=== PATIENT | female | born 2000 | race Two or more races ===

== ENCOUNTER 2018-10-28 16:30 | Emergency (ER) | payer OTHER ==
--- NOTE | 2018-10-28 17:25 | EDPHY ---
H & P Stated Complaint: positive d dimer at [facility], sent by them Time Seen by Provider: 10/28/18 16:38 HPI/ROS: CHIEF COMPLAINT: Right sided chest pain, positive D-dimer HISTORY OF PRESENT ILLNESS: 18-year-old female presents with right-sided chest pain. Onset of right-sided lower chest pain 4 days ago. The pain is intermittent and increases with deep inspiration. No shortness of breath and no recent URI symptoms or fever. On control pills, nonsmoker. No prior history of VTE. Was seen at the [facility] today and D-dimer was reportedly elevated. The remainder of the tests including LFTs were unremarkable. Sent here for further evaluation. REVIEW OF SYSTEMS: complete 10 point ROS reviewed and is negative except for the noted elements in the HPI - Personal History LMP (Females 10-55): Now Current Tetanus Diphtheria and Acellular Pertussis (TDAP): Yes - Medical/Surgical History Hx Asthma: No Hx Chronic Respiratory Disease: No Hx Diabetes: No Hx Cardiac Disease: No Hx Renal Disease: No Hx Cirrhosis: No Hx Alcoholism: No Hx HIV/AIDS: No Hx Splenectomy or Spleen Trauma: No - Social History Smoking Status: Never smoked Alcohol Use: Sober Drug Use: None - Physical Exam Exam: General Appearance: Alert, pleasant Eyes: Pupils equal and round, no conjunctival pallor or injection ENT, Mouth: Mucous membranes moist Neck: Normal inspection Respiratory: No chest wall tenderness, normal respiratory rate, Lungs are clear to auscultation Cardiovascular: Regular rate and rhythm Gastrointestinal: Abdomen is soft and nontender Neurological: A&O, nonfocal, normal gait Skin: Warm and dry, no rash on exposed skin Extremities: Nontender, no pedal edema Psychiatric: Mood and affect normal Constitutional: Initial Vital Signs Temperature (C) 37.1 C 10/28/18 16:32 Heart Rate 86 10/28/18 16:32 Respiratory Rate 16 10/28/18 16:32 Blood Pressure 109/69 10/28/18 16:32 O2 Sat (%) 96 10/28/18 16:32 O2 Delivery Mode Room Air Allergies/Adverse Reactions: No Known Allergies Allergy (Unverified 10/28/18 16:32) Home Medications: Medication Instructions Recorded Lamictal 10/28/18 Johnny 1.5 mg-30 Mcg Tablet 10/28/18 Medical Decision Making - Diagnostics EKG Interpretation: EKG interpreted by me reveals normal sinus rhythm, rate 85, early repolarization. Interpretation: Normal EKG Imaging Results: Chest/Thorax CTA 10/28/18 18:14 Impression: No acute pulmonary embolus. Findings and recommendations discussed with CHELE BROWNE at 1850 hour, 2018. Imaging: Discussed imaging studies w/ bingo caller Radiologist ED Course/Re-evaluation: This patient presents with intermittent pleuritic right-sided chest pain. On OCP's, PERC score positive (1), repeat D-dimer is 3.7. CT pulmonary angiogram ordered and reveals no evidence of pulmonary embolism. Results discussed with the patient. Repeat abd exam soft, NT; no evidence for intraabd etiology. c/w musculoskeletal etiology of pain. Toradol 30 mg IV given. Will follow up at [facility]. Warning signs discussed. Differential Diagnosis: Differential diagnosis includes though it is not limited to pneumonia, pneumothorax, pulmonary embolism, aortic dissection, pericarditis, acute coronary syndrome. - Data Points Laboratory Results: Laboratory Results 10/28/18 17:03 10/28/18 17:03 Medications Given: Discontinued Medications Diphenhydramine HCl (Benadryl Injection) 25 mg IVP EDNOW ONE Stop: 10/28/18 18:46 Last Admin: 10/28/18 18:47 Dose: 25 mg Sodium Chloride (Ns) 1,000 mls @ 0 mls/hr IV EDNOW ONE; Wide Open PRN Reason: Protocol Stop: 10/28/18 19:00 Last Admin: 10/28/18 19:02 Dose: 1,000 mls Departure - Departure Disposition: Home, Routine, Self-Care Clinical Impression: Chest pain Qualifiers: Chest pain type: other chest pain Qualified Code(s): R07.89 - Other chest pain Condition: Good Instructions: Chest Pain (ED) Additional Instructions: You do not have a blood clot in your lungs. Ibuprofen 600 mg 3 times daily while the pain persists. Return for worsening symptoms or any concerns. [facility] [Other] - As per Instructions
[2018-10-28 17:53] LABS: PLATELET COUNT 436 10^3/uL (150-400)
[2018-10-28] MEDS ORDERED: IOPAMIDOL (ISOVUE-370) 150 ML BTL IV ONE (18:22)
[2018-10-28 18:43] VITALS: BP 121/70
[2018-10-28] MEDS ORDERED: NS 1,000 ML IV ONE (18:59)
--- NOTE | 2018-10-28 23:04 | CPEKG ---
Test Reason : OPEN Blood Pressure : / mmHG Vent. Rate : 085 BPM Atrial Rate : 084 BPM P-R Int : 141 ms QRS Dur : 083 ms QT Int : 350 ms P-R-T Axes : 068 063 045 degrees QTc Int : [address] elev, probable normal early repol pattern Confirmed by Mariel Browne ([id number]) on 10/28/2018 11:04:20 PM Referred By: MARIEL BROWNE Confirmed By:Mariel Browne
== END 2018-10-28 20:03 | disposition home or self-care (01) ==
DX: R07.89 Other chest pain (principal)
CPT/HCPCS: 96374; J1200; Q9967